=== PATIENT | male | born 1980 | race American Indian/Alaskan Native ===

== ENCOUNTER 2018-11-02 11:03 | Emergency (ER) | payer MEDICARE, OTHER ==
[2018-11-02] MEDS ORDERED: ZOFRAN IV ONE (11:51)
[2018-11-02] MEDS ORDERED: NACL 0.9% 1000 ML 1,000 ML IV ONE (11:51)
--- NOTE | 2018-11-02 11:51 | Emergency Department Report ---
Blank Doc - Documentation Documentation: This is a 38-year-old male that presents with abdominal pain, N/V, and diarrhea x4 days. Hypotension in triage. This initial assessment diagnostic orders/clinical plan/treatment(s) is/are subject to change based on patient's health status, clinical progression and re-assessment by fellow clinical providers in the ED. Further treatment and workup at subsequent clinical providers discretion. Patient/guardians urged not to elope from ED s their condition may be serious if not clinically assessed and managed. Initial orders include: 1-Patient sent to [facility] for further evaluation and treatment 2- Labs 3- UA 4- will order fluids with zofran iv
[2018-11-02 12:48] LABS: Basophils % (Auto) 0.2 % (0.0-1.8); Eosinophils % (Auto) 0.4 % (0.0-4.3); Hematocrit 41.9 % (35.5-45.6); Hemoglobin 14.3 gm/dl (11.8-15.2); Lymphocytes # (Auto) 1.6 K/mm3 (1.2-5.4); Lymphocytes % (Auto) 30.2 % (13.4-35.0); Mean Corpuscular HGB Conc 34 % (32-34); Mean Corpuscular Volume 93 fl (84-94); Monocytes # (Auto) 0.6 K/mm3 (0.0-0.8); Monocytes % (Auto) 10.7 % (0.0-7.3); Platelet Count 197 K/mm3 (140-440); Red Blood Count 4.49 M/mm3 (3.65-5.03); Red Cell Distribution Width 12.2 % (13.2-15.2)
[2018-11-02 13:09] LABS: Alanine Aminotransferase 13 units/L (7-56); BUN/Creatinine Ratio 12; Blood Urea Nitrogen 11 mg/dL (9-20); Calcium 8.7 mg/dL (8.4-10.2); Hemolysis Index 26
[2018-11-02] MEDS ORDERED: ZOFRAN IM ONE (20:22)
[2018-11-02] MEDS ORDERED: SUBLIMAZE IV ONE (20:23)
[2018-11-02] MEDS ORDERED: LOMOTIL PO ONE (20:24)
--- NOTE | 2018-11-02 20:27 | Emergency Department Report ---
HPI - General Chief Complaint: Nausea/Vomiting/Diarrhea Time Seen by Provider: 11/02/18 11:49 - HPI HPI: Room 4 The patient is a 38-year-old male presenting with a chief complaint of abdominal pain and diarrhea. The patient states approximately 4 days ago he had eaten tuna salad. Approximately 11 hours later he developed diaphoresis and abdominal cramping. Patient admits to one episode of nausea and vomiting. Patient states he then had copious diarrhea for the last 3 days. The patient states Imodium has not helped. Denies any recent antibiotic use. Patient currently gets his pain score of 9/10 Location: Gastriointestinal system Duration: [See above] Quality: Cramping Severity: Moderate Modifying factors: [see above] Context: [see above] Mode of transportation: [not driving] ED Past Medical Hx - Past Medical History Previous Medical History?: Yes Hx Seizures: Yes Additional medical history: neuropathy - Surgical History Past Surgical History?: Yes Additional Surgical History: epigastric hernia repair - Family History Family history: no significant - Social History Smoking Status: Never Smoker Substance Use Type: None (denies illicit drug) - Medications Home Medications: Home Medications Medication Instructions Recorded Confirmed Last Taken Type Ciprofloxacin HCl [Ciprofloxacin 500 mg PO Q12HR #14 tab 11/02/18 Unknown Rx TAB] Diphenoxylate/Atropine [Lomotil] 2 tab PO QID PRN #20 tablet 11/02/18 Unknown Rx HYDROcodone/APAP 5-325 [Topock 1 - 2 each PO Q6HR PRN #14 tablet 11/02/18 Unknown Rx 5/325] Promethazine [Phenergan TAB] 25 mg PO Q6HR PRN #20 tab 11/02/18 Unknown Rx ED Review of Systems ROS: Stated complaint: DIARRHEA X4DAYS Other details as noted in HPI Constitutional: no symptoms reported Eyes: denies: eye pain ENT: denies: as per HPI Respiratory: no symptoms reported Cardiovascular: denies: chest pain Endocrine: no symptoms reported Gastrointestinal: abdominal pain, nausea, vomiting, diarrhea Genitourinary: denies: dysuria Musculoskeletal: denies: back pain Neurological: denies: weakness Physical Exam - Physical Exam Vital Signs: Vital Signs 11/02/18 11/02/18 11:49 18:15 Temperature 98.5 F 98.2 F Pulse Rate 74 66 Respiratory 18 14 Rate Blood Pressure 98/68 100/62 O2 Sat by Pulse 99 Oximetry Physical Exam: GENERAL: The patient is well-developed well-nourished male lying on stretcher not appearing to be in acute distress. [] HEENT: Normocephalic. Atraumatic. Extraocular motions are intact. Patient has moist mucous membranes. NECK: Supple. Trachea midline CHEST/LUNGS: Clear to auscultation. There is no respiratory distress noted. HEART/CARDIOVASCULAR: Regular. There is no tachycardia. There is no gallop rub or murmur. ABDOMEN: Abdomen is soft, with mild discomfort to palpation in the right upper quadrant, right lower quadrant and suprapubic region. Patient has normal bowel sounds. There is no abdominal distention. SKIN: There is no rash. There is no edema. There is no diaphoresis. NEURO: The patient is awake, alert, and oriented. The patient is cooperative. The patient has normal speech MUSCULOSKELETAL: There is no evidence of acute injury. ED Course Vital Signs 11/02/18 11/02/18 11:49 18:15 Temperature 98.5 F 98.2 F Pulse Rate 74 66 Respiratory 18 14 Rate Blood Pressure 98/68 100/62 O2 Sat by Pulse 99 Oximetry ED Medical Decision Making - Lab Data Result diagrams: 11/02/18 12:14 11/02/18 12:14 Laboratory Tests 11/02/18 11/02/18 12:14 12:14 WBC 5.3 RBC 4.49 Hgb 14.3 Hct 41.9 MCV 93 MCH 32 MCHC 34 RDW 12.2 L Plt Count 197 Lymph % (Auto) 30.2 [place] % (Auto) 10.7 H Eos % (Auto) 0.4 Baso % (Auto) 0.2 Lymph # 1.6 [place]he # 0.6 Eos # 0.0 Baso # 0.0 Seg Neutrophils % 58.5 Seg Neutrophils # 3.1 Sodium 139 Potassium 4.1 Chloride 101.6 Carbon Dioxide 28 Anion Gap 14 BUN 11 Creatinine 0.9 Estimated GFR > 60 BUN/Creatinine Ratio 12 Glucose 79 Calcium 8.7 Total Bilirubin 0.40 AST 21 ALT 13 Alkaline Phosphatase 56 Total Protein 7.4 Albumin 4.0 Albumin/Globulin Ratio 1.2 Lipase 18 - Radiology Data Radiology results: report reviewed (CT abdomen and pelvis), image reviewed (CT abdomen and pelvis) [facility] [address] [place] [address] Cat Scan Report Signed Patient: JOAQUINA SUH JR MR#: [id number] : 1980 Acct:[id number] Age/Sex: 38 / M ADM Date: 11/02/18 Loc: ED Attending Dr: Ordering Physician: DOT ART MD Date of Service: 11/02/18 Procedure(s): CT abdomen pelvis w con Accession Number(s): [id number] cc: DOT ART MD FINAL REPORT EXAM: CT ABDOMEN PELVIS W CON HISTORY: diffuse abdominal pain, diarrhea TECHNIQUE: Dynamic helical CT scan through the abdomen and pelvis during and again after intravenous injection of iodinated contrast. Images are reconst ructed in the sagittal and coronal planes. Oral contrast was not given. PRIORS: None. FINDINGS: The lung bases are clear. The liver, gallbladder, pancreas, spleen and adrenal glands appear normal. The kidneys appear normal. The pelvic organs appear grossly normal. The stomach appears grossly within normal limits. There are no abnormally dilated loops of bowel or acute inflammatory changes. A normal-appearing appendix is identified. The abdominal aorta has a normal diameter. There is a large broad-based posterior disc bulge at L4-5. There is mottled subchondral sclerosis of both femoral heads suspicious for bilateral avascular necrosis. Both femoral heads have normal rounded contours and the hip joint spaces are well preserved. IMPRESSION: 1. No acute findings in the abdomen/pelvis 2. Large broad-based posterior disc bulge at L4-5 3. Subchondral sclerosis of both femoral heads is suspicious for avascular necrosis. Clinical correlation required. Transcribed By: [facility] Dictated By: KEYSHA MEHTA MD Electronically Authenticated By: KEYSHA MEHTA MD Signed Date/Time: 11/02/182144 DD/ 44 TD/TT: 11/02/182144 - Medical Decision Making CT findings discussed with patient. Patient will be given a referral to gastroenterology and orthopedic surgery for further evaluation - Differential Diagnosis gastroenteritis, colitis, Critical care attestation.: If time is entered above; I have spent that time in minutes in the direct care of this critically ill patient, excluding procedure time. ED Disposition Clinical Impression: Acute abdominal pain, Nausea vomiting and diarrhea Disposition: TO HOME OR SELFCARE Is pt being admited?: No Does the pt Need Aspirin: No Condition: Stable Instructions: Acute Nausea and Vomiting (ED), Abdominal Pain (ED) Additional Instructions: Return to the emergency department immediately should you develop worsening symptoms, fever, inability to tolerate food or liquid or any other concerns. Prescriptions: Ciprofloxacin HCl [Ciprofloxacin TAB] 500 mg PO Q12HR #14 tab Diphenoxylate/Atropine [Lomotil] 2 tab PO QID PRN #20 tablet PRN Reason: Diarrhea HYDROcodone/APAP 5-325 [Topock 5/325] 1 - 2 each PO Q6HR PRN #14 tablet PRN Reason: Pain Promethazine [Phenergan TAB] 25 mg PO Q6HR PRN #20 tab PRN Reason: Nausea Referrals: DIANA VIERA MD [Primary Care Provider] - 3-5 Days SANDOVAL CONRAD MD [Staff Physician] - 3-5 Days (Dr. Conrad is an orthopedic surgeon. Please follow up with him for further evaluation) MCKINLEY PENALOZA MD [Staff Physician] - 3-5 Days (Dr. Penaloza is a gastro enterologist. Please follow-up with him for further evaluation) Time of Disposition: 22:05
--- NOTE | 2018-11-02 21:45 | Cat Scan Report ---
FINAL REPORT EXAM: CT ABDOMEN PELVIS W CON HISTORY: diffuse abdominal pain, diarrhea TECHNIQUE: Dynamic helical CT scan through the abdomen and pelvis during and again after intravenous injection of iodinated contrast. Images are reconstructed in the sagittal and coronal planes. Oral c ontrast was not given. PRIORS: None. FINDINGS: The lung bases are clear. The liver, gallbladder, pancreas, spleen and adrenal glands appear normal. The kidneys appear normal. The pelvic organs appear grossly normal. The stomach appears grossly within normal limits. There are no abnormally dilated loops of bowel or acute inflammatory changes. A normal-appearing appe ndix is identified. The abdominal aorta has a normal diameter. There is a large broad-based posterior disc bulge at L4-5. There is mottled subchondral sclerosis of both femoral heads suspicious for bilateral avascular necrosis. Both femoral heads have normal rounde d contours and the hip joint spaces are well preserved. IMPRESSION: 1. No acute findings in the abdomen/pelvis 2. Large broad-based posterior disc bulge at L4-5 3. Subchondral sclerosis of both femoral heads is suspicious for avascular necrosis. Clinical correla tion required.
[2018-11-02 23:11] VITALS: BP 99/64
== END 2018-11-02 23:12 | disposition home or self-care (01) ==
LOC: ED 11:03
DX: R10.84 Generalized abdominal pain (principal); R11.2 Nausea with vomiting, unspecified; R19.7 Diarrhea, unspecified; Z88.0 Allergy status to penicillin
CPT/HCPCS: 36415; 74177; 80053; 83690; 85025; 96372; 96374; 99284; J2405; J3010; Q9967